=== PATIENT | female | born 1955 | race Hispanic/Latino ===

== ENCOUNTER 2017-09-13 07:37 | Inpatient (IN) | payer BC ==
[2017-09-02 12:11] VITALS: BMI 27.4
[2017-09-13] MEDS ORDERED: Lidocaine 1% Inj (20ml) INFIL ONE (07:48)
[2017-09-13] MEDS ORDERED: Bupivacaine 0.5% Inj(30mL) IJ ONE (07:48)
[2017-09-13] MEDS ORDERED: ceFAZolin 1 gm in NS 1 GM/100 ML BAG IVPB ONE (07:48)
[2017-09-13] MEDS ORDERED: Propofol 10 mg/ml Inj (20 ML) ONE (10:18)
[2017-09-13] MEDS ORDERED: Midazolam 2 MG/2 ML VIAL ONE (10:18)
[2017-09-13] MEDS ORDERED: Lidocaine 2% MPF (5 ml) Inj ONE (10:19)
[2017-09-13] MEDS ORDERED: Phenylephrine 10 mg/ml Inj ONE (10:20)
[2017-09-13] MEDS ORDERED: Lactated Ringer's 500 ML IV ONE (10:35)
[2017-09-13] MEDS ORDERED: Neostigmine Methylsulfate 3mg/3ml Syringe IV ONE (11:57)
[2017-09-13] MEDS ORDERED: HYDROmorphone 0.5 mg/0.5 ml ISec ONE (12:19)
[2017-09-13] MEDS: HYDROmorphone 0.5 mg/0.5 ml ISec IVP PRN ×2 (12:19→12:51)
--- NOTE | 2017-09-13 13:46 | CP.PCM.HP ---
History of Present Illness - History of Present Illness History of Present Illness: COMPREHENSIVE HISTORY & PHYSICAL EXAM HPI 62 years old white woman admitted for laparoscopic appendicectomy for possible lymphoma. Patient has a non-Hodgkins lymphoma for a few years has been followed by oncologist at [facility]. Currently patient is in remission. Patient had a routine PET scan done a month ago which showed possibility of lightening up in the appendix with possibility of lymphoproliferative activity. Patient currently has no nausea or vomiting or any abdominal pain. PAST HIST. Patient has a history of hypertension on medications. No history of diabetes. Patient has a history of skin rash which has been investigated by multiple dermatologists with no definite diagnosis PERSONAL HIST: Smoking. N Alcohol. N Allergy N Travel_- . FAMILY HIST : ROS : Constitutional: Negative for weight change, chills, night sweats, fatigue and usage of assist device. Eyes: Negative for redness, swelling, itching, discharge, vision changes, blurry vision, double vision, glaucoma, cataracts, Ears: Negative for hearing loss, ringing, , tinnitus, vertigo Nose: Negative for rhinorrhea, stuffiness, sniffing, itching, postnasal drip, discoloration, nasal congestion and epistaxis. Throat: Negative for throat clearing, sore throat, hoarseness, difficulty swallowing and difficulty speaking. Respiratory: Negative for cough, , sputum production, chest tightness, wheezing, pleuritic chest pain ,daytime somnolence, chronic cough, hemoptysis, snoring at night, Cardiovascular: Negative for chest pain, palpitations, orthopnea, PND, Edema of legs, leg cramps, angina, claudication, , irregular heartbeat, Neurology: Negative for irritability, muscle weakness, numbness and tingling, seizures, tremors, migraines, slurred speech, syncope, memory loss, mood changes , recurrent headaches Gastrointestinal: Negative for difficulty swallowing, diarrhea, constipation, black stools, rectal bleeding, nausea, flatulence, reflux, poor appetite, changes in bowel habits, abdominal pain Genitourinary: Negative for frequent urination, hematuria, discharge, incontinence, urinary retention, frequent UTI, Psychiatric: Negative for depression, anxiety/panic, suicidal tendencies, Musculoskeletal: Negative for swollen joints, back pain, , neck pain, morning stiffness of joints, . Skin: Negative for rash, ulcers, itching, dry skin and pigmented lesions. P/E: Constitutional: Appears stated age and in no apparent distress. Head: Normocephalic. Ears: External ear canals patent without inflammation. Tympanic membranes intact with normal light reflex and landmark. Eyes: Pupils are central, bilaterally equal, symmetrical and reacts to light with normal movements and no icterus or pallor. Nose: External nares are patent. Mucosa is pink Mouth-Throat: Good general appearance and condition. No post-pharyngeal/oropharyngeal erythema and tonsillar hypertrophy. Good dental hygiene. Neck-Lymphatic: Neck is supple with normal ROM, no thyromegaly, lymph nodes or masses. JVD is normal with no carotid bruit. Lungs: Clear to percussion and auscultation with bilateral normal air entry. Cardiovascular: S1 and S2 are normal with no murmurs, gallops and rub. GI Exam: No hepatomegaly. Abdomen is soft and non-tender. No Organomegaly , masses or hernias are evident and bowel sounds are normal and active. Neurology: Higher function and all cranial nerves intact, with no gross motor or sensory deficit. Superficial and deep reflexes are normal with downwards planters. No cerebellar deficit with normal gait. Musculoskeletal: No tender spots with normal curvature of the spine with no swelling or restricted ROM of the small and large joints. Extremities: Homans sign absent. Intact pulses with no pitting edema, calf tenderness or skin color changes. Skin: Erythematous patch on the bridge of the nose and on the forearms. LAB/RADIOLOGY: ASSESMENT : Non-Hodgkin lymphoma, in remission with possibility of infiltrating the appendix for laparoscopic appendicectomy. Hypertension PLAN: See orders Present on Admission - Present on Admission Any Indicators Present on Admission: No Past Patient History - Infectious Disease Hx of Infectious Diseases: None - Past Medical History & Family History Past Medical History?: Yes - Past Social History Smoking Status: Heavy Smoker > 10 Cigarettes Daily - CARDIAC Hx Cardiac Disorders: No Hx Hypertension: Yes Other/Comment: abd aortic stenting 2009 - PULMONARY Hx Respiratory Disorders: No - NEUROLOGICAL Hx Neurological Disorder: No - HEENT Hx HEENT Problems: No - RENAL Hx Chronic Kidney Disease: No - ENDOCRINE/METABOLIC Hx Endocrine Disorders: No - HEMATOLOGICAL/ONCOLOGICAL Hx Blood Disorders: Yes Hx Cancer: Yes (non hodgkins lymphoma) Hx Chemotherapy: Yes (2007 immumotherapy 2013) - INTEGUMENTARY Hx Dermatological Problems: Yes Other/Comment: RAISED AREAS BOTH ARMS AND LEGS. STATES BEEN HASPPENING FOR YEARS. SEEN BY DEMATOLOGIST AND INFECTIOUS DISEASE DOCTORS STATED BY PATIENT - MUSCULOSKELETAL/RHEUMATOLOGICAL Hx Musculoskeletal Disorders: No Hx Back Pain: Yes Hx Fractures: Yes (right leg) Hx Herniated Disk: Yes (cervical thoraic lumbar) - GASTROINTESTINAL Hx Gastrointestinal Disorders: No - GENITOURINARY/GYNECOLOGICAL Hx Genitourinary Disorders: No - PSYCHIATRIC Hx Psychophysiologic Disorder: No Hx Anxiety: No Hx Depression: Yes Hx Substance Use: Yes (3 days ago) - SURGICAL HISTORY Hx Surgeries: Yes Hx Angiogram: Yes (2009 stenting abd aorta) Hx Musculoskeletal Surgery: Yes (right knee and right ankle) Hx Open Reduction Internal Fixation: Yes (right leg) Hx Vascular Access Device: Yes (CAYDEN CATH RIGHT CHEST) Other/Comment: stent on the aorta. CAYDEN CATH RIGHT CHEST/FLUSHED 3 WEEK AGO - ANESTHESIA Hx Anesthesia: Yes Hx Anesthesia Reactions: No Hx Malignant Hyperthermia: No Has any member of the family had a problem w/ anesthesia?: No Meds Allergies/Adverse Reactions: Allergies Allergy/AdvReac Type Severity Reaction Status Date / Time No Known Allergies Allergy Verified 11/01/15 13:00 Results - Vital Signs Recent Vital Signs: Last Vital Signs Temp 97 F L 09/13/17 12:04 Pulse 71 09/13/17 13:00 Resp 17 09/13/17 13:00 BP 102/33 L 09/13/17 13:00 Pulse Ox 99 09/13/17 13:00 - Labs Result Diagrams: 09/14/17 07:47 09/14/17 07:47 Labs: Laboratory Results - last 24 hr 09/13/17 08:34 POC Glucose (mg/dL) 106
[2017-09-13] MEDS: Dextrose 5%/0.45% NS 1,000 ML IV SCH (15:30)
[2017-09-13] MEDS: Enoxaparin 30 mg Syringe SC SCH (22:01)
--- NOTE | 2017-09-14 | OP ---
PROCEDURE DATE: 09/13/2017 PREOPERATIVE DIAGNOSES: Abnormal appendix, history of lymphoma. POSTOPERATIVE DIAGNOSES: Abnormal appendix, history of lymphoma. PROCEDURE PERFORMED: Laparoscopic appendectomy. SURGEON: Malik Dos Santos MD TYPE OF ANESTHESIA: General. ESTIMATED BLOOD LOSS: 40 mL. POSTOPERATIVE CONDITION: Stable. INDICATION FOR SURGERY: This is a 62-year-old female who 9 years ago was treated for lymphoma. She recently underwent a CAT scan, which revealed some enlarged retroperitoneal lymph nodes along with appendix, a possible neoplasm. She now is scheduled for elective laparoscopic appendectomy. GROSS FINDINGS: The patient had a retrocecal appendix. It was chronically inflamed. No tumors were identified, however. DESCRIPTION OF PROCEDURE: The patient was taken to the operating room. General anesthesia was administered. The abdomen was prepped and draped. A periumbilical cutdown was performed and a blunt port was inserted. In the left lower quadrant, we inserted a Versaport and suprapubically, a 5 mm was inserted. First, the base of the appendix was found and clamped using a grasper. With careful blunt and sharp dissection using scissors and using Endo Carmen and a dissector, the appendix was carefully removed from its retroperitoneal attachments. Once this had been done, the mesoappendix was divided using a LigaSure device. Bleeding was noted near the appendicular artery and this was repaired. The base of the appendix was divided using an Endo-FIDE. The appendix was then removed through the umbilical port after being placed in a lap bag, and the right lower quadrant was irrigated with saline until clear. The ports were removed. Fascial defects were closed with heavy Monocryl, and the skin was closed with subcuticular Monocryl and glue. The patient tolerated the procedure well and returned to recovery room in stable condition. Malik Dos Santos MD
[2017-09-14] MEDS: Dextrose 5%/0.45% NS 1,000 ML IV SCH (04:27)
[2017-09-14 08:02] LABS: BASO % 0.9 % (0.0-2.0); EOS # 0.2 K/uL (0.0-0.7); EOS % 4.1 % (0.0-4.0); LYMPH # 1.1 K/uL (1.0-4.3); LYMPH % 24.5 % (20.0-40.0); MEAN CELL VOLUME 84.8 fL (81.0-99.0); MEAN CORPUSCULAR HEMOGLOBIN 28.9 pg (27.0-31.0); MEAN PLATELET VOLUME 8.6 fL (7.2-11.7); MONO # 0.2 K/uL (0.0-0.8); NEUT # 2.8 K/uL (1.8-7.0); NEUT % 65.5 % (50.0-75.0); RBC 3.42 Mil/uL (3.80-5.20); RED CELL DISTRIBUTION WIDTH 14.5 % (11.5-14.5); WHITE BLOOD COUNT 4.3 K/uL (4.8-10.8)
[2017-09-14 08:05] LABS: HEMOGLOBIN 9.9 g/dL (11.0-16.0)
[2017-09-14 08:16] LABS: BLOOD UREA NITROGEN 11 mg/dL (7-17); CALCIUM 8.3 mg/dl (8.6-10.4); GFR AFRICAN-AMERICAN > 60; GFR NON-AFRICAN AMERICAN 56
[2017-09-14] MEDS: Oxycodone/Acetaminophen 5/325 mg Tab PO PRN ×2 (10:04→17:58)
[2017-09-14] MEDS: Enoxaparin 30 mg Syringe SC SCH ×2 (10:06→22:42)
--- NOTE | 2017-09-14 14:11 | CP.PCM.PN ---
Subjective - Date & Time of Evaluation Date of Evaluation: 09/14/17 Time of Evaluation: 14:09 - Subjective Subjective: CHIEF COMPLAINTS TODAY : Early this morning patient had a temperature of 10 1F. not informed. ROS. HEENT : N. Resp : No cough, wheezing ,pleuritic CP ,or hemoptysis Cardio : No anginal CP, PND, orthopnea, palpitation GI : No abd.pain, n/v ,diarrhea or GI bleeding . DRAINMAN : No headache, vertigo, focal deficit. Musculoskel : No joint swelling , Derm : No rash Psych : Normal affect. Ext : No swelling ,calf pain PE. Pt. is alert awake in no distress. V.S As noted in the chart Head ,ear nose,throat and eyes : Normal. Neck : Supple with normal carotids. Lungs: Clear air entry. Heart : S1 & S2 normal with S4. No murmur. Abd : Soft non tender with normal bowel sounds. Neuro : Moves all ext. with no localized deficit. Ext : No edema with intact pulses.Non tender calves Derm : No rashes or decubitus ulcer. LABS/RADIOLOGY: ASSESSMENT/PLAN : Will obtain septic workup including urine culture. Empirically treat with Rocephin 1 g daily. Objective - Vital Signs/Intake and Output Vital Signs (last 24 hours): Temp Pulse Resp BP Pulse Ox 98.5 F 88 20 130/70 96 09/14/17 07:00 09/14/17 07:00 09/14/17 07:00 09/14/17 07:00 09/14/17 07:00 - Medications Medications: Current Medications Docusate Sodium (Colace) 100 mg PO BID [facility] Last Admin: 09/14/17 10:09 Dose: 100 mg Enoxaparin Sodium (Lovenox) 30 mg SC 1000,2200 [facility] Last Admin: 09/14/17 10:06 Dose: 30 mg Dextrose/Sodium Chloride (Dextrose 5%/0.45% Ns 1000 Ml) 1,000 mls @ 80 mls/hr IV .[id number] [facility] Last Admin: 09/14/17 04:27 Dose: 80 mls/hr Ketorolac Tromethamine (Toradol) 30 mg IVP Q6 PRN PRN Reason: pain 8-10 Stop: 09/18/17 12:10 Last Admin: 09/14/17 00:45 Dose: 30 mg Ondansetron HCl (Zofran Inj) 4 mg IVP Q6 PRN PRN Reason: Nausea/Vomiting Oxycodone/Acetaminophen (Percocet 5/325 Mg Tab) 2 tab PO Q4H PRN PRN Reason: pain Stop: 09/16/17 12:10 Last Admin: 09/14/17 10:04 Dose: 2 tab Pantoprazole Sodium (Protonix Inj) 40 mg IVP DAILY [facility] Last Admin: 09/14/17 10:09 Dose: 40 mg Pneumococcal Polyvalent Vaccine (Pneumovax 23 Vaccine) 0.5 ml IM .ONCE ONE Stop: 09/16/17 10:01 - Labs Labs: 09/14/17 07:47 09/14/17 07:47
[2017-09-14] MEDS ORDERED: Midazolam 2 MG/2 ML VIAL ONE (15:01)
[2017-09-14] MEDS ORDERED: Propofol 10 mg/ml Inj (20 ML) ONE (15:01)
[2017-09-14] MEDS ORDERED: Bupivacaine 0.25% 20 ML INJ IJ ONE (15:03)
[2017-09-14] MEDS: cefTRIAXone IV 1 gm in Dextros 50 ML IVPB SCH (15:44)
[2017-09-14] MEDS ORDERED: HYDROmorphone 0.5 mg/0.5 ml ISec IVP PRN (16:14)
[2017-09-14 17:26] VITALS: RESP 20
[2017-09-15] MEDS: Dextrose 5%/0.45% NS 1,000 ML IV SCH (01:45)
--- NOTE | 2017-09-15 02:05 | OP ---
PROCEDURE DATE: 09/14/2017 PREOPERATIVE DIAGNOSIS: Rule out lymphoma. POSTOPERATIVE DIAGNOSIS: Rule out lymphoma. PROCEDURES PERFORMED: 1. Wide and deep excision mass of right groin and pelvic area with advancement flap closure. 2. Biopsy of left forearm mass. SURGEON: Malik Dos Santos MD ANESTHESIA: General. BLOOD LOSS: 40 mL. POSTOPERATIVE CONDITION: Stable. INDICATIONS FOR SURGERY: This is a 62-year-old female with history of lymphoma, underwent a laparoscopic appendectomy yesterday for suspicious finding of the appendix on CAT scan. Today, she is taken back to the OR in a staged procedure for excision of a right groin mass along with a skin biopsy of the left forearm. DESCRIPTION OF PROCEDURE: The patient was taken to the operating room. General anesthesia was administered. The right groin was prepped and draped. A generous elliptical incision was made surrounding the mass. It was dissected into the lymphovascular layer and completely excised. Bleeding was controlled using the Bovie, and a larger venous blood vessel was repaired with Prolene. The wound was irrigated with copious amount of saline solution. Full-thickness flaps were raised, and an advancement flap closure was performed with multiple layers of Monocryl, subcuticular Monocryl, and glue. Attention was turned to the left forearm where an elliptical incision was made surrounding a mass with an overlying skin lesion and it was completely excised into the subcutaneous tissue. Bleeding was controlled using a Bovie. Flaps were raised and a subcuticular closure was performed with 3-0 Monocryl. The patient tolerated the procedure well. Returned to recovery room in stable condition. Malik Dos Santos MD
[2017-09-15 02:29] VITALS: O2SAT 94
[2017-09-15] MEDS: Oxycodone/Acetaminophen 5/325 mg Tab PO PRN ×2 (04:36→09:47)
[2017-09-15 08:12] VITALS: BP 106/67; PULSE 70; TEMP 98.1
[2017-09-15] MEDS: cefTRIAXone IV 1 gm in Dextros 50 ML IVPB SCH (09:41)
[2017-09-15] MEDS: Enoxaparin 30 mg Syringe SC SCH (09:42)
--- NOTE | 2017-09-15 14:10 | CP.PCM.PN ---
Subjective - Date & Time of Evaluation Date of Evaluation: 09/15/17 Time of Evaluation: 14:09 - Subjective Subjective: Patient was discharged by the surgery today. Patient has no further fever. Urine cultures are negative so far. Blood cultures still pending. [id number], patient had biopsy of the inguinal lymph node and a skin biopsy of the lesions on the forearm. We will continue management as an outpatient. Objective - Vital Signs/Intake and Output Vital Signs (last 24 hours): Temp Pulse Resp BP Pulse Ox 98.1 F 70 20 106/67 94 L 09/15/17 07:00 09/15/17 07:00 09/15/17 07:00 09/15/17 07:00 09/15/17 07:00 Intake and Output: 09/15/17 09/15/17 11:59 23:59 Intake Total 160 Balance 160 - Labs Labs: 09/14/17 07:47 09/14/17 07:47
[2017-09-16] MEDS ORDERED: Pneumococcal 23-Valent Vaccine IM ONE (10:00)
== END 2017-09-15 11:35 | disposition home or self-care (01) | DRG 343 ==
LOC: C.SDS 07:37 → C.9S 12:10 → C.6T 18:58
PROVIDERS: ADMIT Surgery; ATTEND Surgery
PROC: 0DTJ4ZZ Resection of Appendix, Percutaneous Endoscopic Approach (ICD-10-PCS; principal; 2017-09-13 09:00)
DX: K36 Other appendicitis (principal); Z85.72 Personal history of non-Hodgkin lymphomas; I10 Essential (primary) hypertension; F17.210 Nicotine dependence, cigarettes, uncomplicated